=== PATIENT | male | born 1980 | race Caucasian/White ===

== ENCOUNTER 2022-07-30 11:23 | Emergency (ER) | payer MEDICAID, SELFPAY ==
[2022-07-30 11:25] VITALS: BP 176/100; PULSE 102; RESP 18; TEMP 36.4; O2SAT 99; BMI 19.2
[2022-07-30] MEDS: Dicyclomine 10 MG Capsule 20 MG PO (11:44)
[2022-07-30] MEDS: Ondansetron ODT 4 MG Tablet PO (11:44)
--- NOTE | 2022-07-30 11:45 | EDS_ITS ---
HPI History of Present Illness Chief Complaint: Nausea/Vomiting Detail of Chief Complaint: Viral-like symptoms, respiratory and GI Informant: patient Onset/Context/Timing Onset: Weeks (Onset was 2 weeks ago) Context: Sudden Onset Timing: Continuous and Waxes and wanes Quality: Upper respiratory infectious symptoms with nausea and cramping abdominal pa Location: Predominantly respiratory and GI Current Severity: Mild Maximum Severity: Moderate Worsened by: Smoking, exertion, drinking water Relieved by: Nothing Associated Symptoms Associated Symptoms: No documented fever. No exposure to anyone ill. Narrative Narrative: Patient is a 42-year-old male who is a smoker of 1 pack/day since he was a teenager. He states his symptoms started approximately 2 weeks ago. He does endorse rhinorrhea, congestion sore throat and cough. Cough is productive now of white to green-colored sputum. He denies blood. He denies history of VTE. He has no risk factors for VTE. He denies leg pain, swelling discoloration. He denies headache, photophobia, neck pain or neck stiffness. He denies auditory symptoms. He denies vomiting or diarrhea. He does endorse thirst, dry mouth. He denied orthostatic symptoms. He denied decreased urine output. He denies joint swelling. He denies rash. Prior similar symptoms: No Recent Illness/Hospitalization: No PFSH PFSH Medical History (Updated 07/30/22 @ 14:[address] Davis Erwin MD) Cough Medical History no medical history no medical history Home Medications doxycycline monohydrate 100 mg capsule 100 mg PO BID #14 CAPSULES 07/30/22 [Rx Last Taken Unknown] Allergy/AdvReac Type Severity Reaction Status Date / Time No Known Allergies Allergy Verified 07/30/22 11:24 Surgical History no surgical history no surgical history Social History (Updated 07/30/22 @ 11:[address] Davis Erwin MD) household members: significant other Smoking Status: Current every day smoker tobacco type: cigarettes substance use type: does not use ROS ROS ED Constitutional Constitutional ED: Denies chills, fever(s), subjective, sweats or weight loss Eyes Eyes: Denies blurry vision, change in vision or diplopia ENT ENT ED: Reports rhinorrhea and sore throat; Denies ear pain Cardiovascular Cardiovascular: Denies chest pain, orthopnea, palpitations, paroxysmal nocturnal dyspnea or racing heartbeat Respiratory/Chest Respiratory/Chest: Reports cough, dyspnea, dyspnea on exertion and sputum; Denies orthopnea or paroxysmal nocturnal dyspnea Gastrointestinal Gastrointestinal: Reports nausea; Denies abdominal pain, diarrhea, melena or vomiting Genitourinary Genitourinary ED: Denies dysuria, hematuria or urinary frequency Musculoskeletal Musculoskeletal: Denies arthralgias, back pain, myalgias or neck pain Integumentary Denies rash Neurologic Neurologic: Denies headache(s), paresthesias or weakness Hematologic/Lymphatic Hematologic/Lymphatic: Reports systems reviewed and no addt'l complaints, except as documented EXAM Physical Exam Const Vital Signs: 07/30/22 11:25 07/30/22 14:12 Temperature 97.6 F L Temperature Source Temporal Pulse Rate 102 H Respiratory Rate 18 Blood Pressure 176/100 H 150/94 H Blood Pressure Mean 125 112 Pulse Ox 99 Oxygen Delivery Method Room Air Positive well nourished and well developed General Appearance ED: well developed and NAD; Negative for cyanotic, diaphoretic or pallor HEENT Reports dry mucous membranes HEENT Narrative: Head is atraumatic normocephalic. Ears normal. Nares patent. There is slight drainage noted. Posterior pharynx out erythema or exudate. Uvula midline. There is no dysphonia. Mouth ED: Yes dry mucous membranes Mouth: dry mucous membranes Eyes PERRL and EOMs intact bilaterally General Eye ED: Negative for pale conjunctiva or scleral icterus Neck no lymphadenopathy, supple and no JVD Neck Narrative: Trachea is midline. There is no inspiratory expiratory stridor. Chest Wall inspection of chest normal and palpation of chest normal Resp normal respiratory effort and clear to auscultation bilaterally Cardio regular rhythm, S1 normal heart sound, S2 normal heart sound and no murmurs Rate: tachycardic GI normal to inspection, nondistended, normoactive bowel sounds, non-distended and no masses; Negative for non-tender or hepatosplenomegaly Auscultation: hypoactive bowel sounds Palpation: soft and tender other (Diffuse) Back/Spine no CVA tenderness Extremity normal to inspection Extremity Narrative: There is no asymmetry, swelling, discoloration, leg vein distention, palpable cords or tenderness along the distribution of the deep venous system. Neuro oriented x3, CN's II-XII intact bilaterally and no sensory deficits noted Sensorium / Orientation: alert Psych mental status grossly normal Skin no rashes or lesions noted, no wounds and skin turgor normal General Skin Exam: Negative for jaundice or pallor MDM MDM MDM Narrative Medical decision making narrative: With history of cough that is productive of colored sputum and smoking history will obtain chest x-ray to evaluate for purulent bronchitis versus pneumonia. Patient was treated with Zofran for his nausea and Bentyl for his cramping abdominal pain. Suspect this is a viral illness however with symptoms for now greater than 2 weeks and now having productive colored sputum will work-up for pneumonia. Vital signs are marked for an elevated blood pressure. Patient has not seen a doctor recently. He has no history of hypertension. Heart rate is also rapid and monitor reveals a sinus tachycardia. There are no prior records for review from the emergency department, general medicine or specialty services. Since patient has colored sputum is a smoker symptoms for greater than 2 weeks we will treat with antibiotics. There is no evidence of pneumonia on the chest x-ray. Since patient did not have a physician he was referred to Dr. Joe Odonnell for follow-up. He was informed that it is in his best interest to quit smoking. He was informed that he may be sick for several more days. Repeat blood pressure is 150/94. Since patient does not have history of hypertension has no end organ dysfunction. We will have him follow-up for repeat blood pressure in [address] Joe Odonnell. Radiography Chest X-Ray - ED: 2 View (2 view chest x-ray independent reviewed interpreted by me as negative for any acute process. There is evidence of hyperaeration consistent with COPD. Cardiac silhouette size normal. Perihilar region unremarkable. Osseous structures are unremarkable.) Diagnostic Testing: Clinical Impression(s) from Imaging Studies Chest X-Ray 07/30/22 12:07 IMPRESSION: Hyperinflation. Decreased bronchovascular markings suggestive of emphysematous changes. Electronically Signed: Davion Lee MD at 12:36 EST , Rhythm Strip Rhythm Strip: Sinus Tach Rate: 102 Ectopy: None Discharge Plan Triage Chief Complaint: Nausea/Vomiting ED Provider: Davis Erwin Dx/Rx/DC Orders Clinical Impression: Bronchitis, purulent, chronic, High blood pressure Instructions: Bronchitis Chronic Dc, ED Hypertension, To Be Confirmed Prescriptions: New doxycycline monohydrate 100 mg capsule 100 mg PO BID Qty: 14 0RF Primary Care Provider: Care Physician,No Primary Referrals: Joe Odonnell DO [Med Staff - Vp Director Of Creative Strategy] - 1-2 Weeks Care Physician,No Primary [Primary Care Provider] - Activity Restrictions/Additional Instructions: It is in your best interest to quit smoking. Because you smoke you may have a cough up to 4 weeks. Disposition Disposition: Home, Self Care
--- NOTE | 2022-07-30 12:07 | RAD_ITS ---
STUDY: X-RAY CHEST REASON FOR EXAM: Male, 42 years old. Productive cough and dyspnea TECHNIQUE: PA and lateral views of the chest. COMPARISON: None. FINDINGS: Hyperinflation. The lungs are clear. Decreased bilateral bronchovascular markings suggestive of emphysematous changes. There is no demonstrated pleural abnormality. Normal size heart. Normal mediastinum and trevor. Normal visualized pulmonary arteries. Normal visualized aortic arch and descending thoracic aorta. Normal visualized thoracic spine. Normal visualized ribs, clavicles, and shoulders. There is no demonstrated abnormality of the visualized soft tissue structures of the upper abdomen. RAD/Chest PA and Lateral IMPRESSION: Hyperinflation. Decreased bronchovascular markings suggestive of emphysematous changes. Electronically Signed: Davion Lee MD at 12:36 EST ,
[2022-07-30 14:12] VITALS: BP 150/94
[2022-07-30 14:37] VITALS: BP 134/78; PULSE 89; RESP 18; TEMP 36.9; O2SAT 96
--- NOTE | 2022-07-30 14:45 | CM.ED ---
Social Work Consult: No Primary Care Physicians Referral source: Self referral due to above. This psychologist social met with patient in room. Introduced self and psychologist social role. Patient agreeable to speak with this psychologist social. This psychologist social broached topic of no primary care physician for patient, patient confirms to not have a primary care physician (PCP). This psychologist social educated patient on value/importance of having a PCP, patient voiced understanding and agreeable to this psychologist social provided patient with list of in-network PCP's that are local to patient geographical region, list provided to patient. Patient denies any other community concerns and reports to have food, a place to stay and transportation. No further services requested or indicated. Elbert Delgado MSW, [facility]
== END 2022-07-30 14:45 | disposition home or self-care (01) ==
PROVIDERS: Emergency Provider Emergency Medicine; Visit Provider Emergency Medicine
DX: J40 Bronchitis, not specified as acute or chronic (principal); I10 Essential (primary) hypertension; R11.0 Nausea; R10.9 Unspecified abdominal pain; R09.3 Abnormal sputum; F17.210 Nicotine dependence, cigarettes, uncomplicated
CPT/HCPCS: 71046; 99283

== ENCOUNTER → 2023-01-21 | Outpatient (CLI) | payer MEDICAID, SELFPAY ==
[2023-01-21 15:26] LABS: Absolute Lymphocyte Count 2.44 X10^3/uL (0.83-4.51); Absolute Neutrophil Count 3.6 X10^3/uL (2.0-7.7); Basophil# 0.04 X10^3/uL; Basophil% 0.5 % (0-1); Eosinophil# 0.55 X10^3/uL; Eosinophils% 7.3 % (0-5); Hematocrit 48.4 % (40-54); Hemoglobin 15.9 g/dL (13.0-16.5); Lymphocyte # 2.44 X10^3/ul (0.83-4.51); Lymphocyte % 32.5 % (19-41); Mean Corp Hgb Conc 32.9 g/dL (32-36); Mean Corpuscular Hgb 32.4 pg (27.0-32.0); Mean Corpuscular Volume 98.8 fL (80-94); Mean Platelet Vol. 9.4 fl (6.2-12.0); Monocyte# 0.87 X10^3/uL; Monocyte% 11.6 % (0-10); NRBC Flagged by Analyzer 0 % (0-5); Neutrophil # 3.57 X10^3/uL (2.7-7.7); Neutrophil % 47.7 % (47-70); Platelet Count 311 K/mm3 (150-450); RBC Distribution Width CV 12.1 % (11.6-14.6); RBC Distribution Width SD 44.5 fl (35.1-43.9); White Blood Count 7.5 K/mm3 (4.4-11.0)
[2023-01-21 16:04] LABS: ALB/GLOB Ratio 0.8 RATIO (0.9-2.4); AST(SGOT) 24 U/L (15-37); Alanine Aminotransfer ALT/SGPT 24 U/L (16-61); Albumin, Serum 3.4 g/dL (3.2-5.0); Alkaline Phosphatase 95 U/L (45-117); Anion Gap 5 (5-15); BUN 15 mg/dL (7-18); BUN/Creat Ratio 18.1 RATIO (10-20); Calcium,Total 9.1 mg/dL (8.5-10.1); Chloride 108 mmol/L (98-107); Cholesterol 250 mg/dL (200); Creatinine, Serum 0.83 mg/dL (0.70-1.30); EST Glomerular Filtration Rate 108 mL/min (>60); Est Glom Filt Rate - Afr Amer 131 mL/min (>60); Globulin 4.4 g/dL (2.2-4.2); Glucose 101 mg/dL (74-106); High Density Lipoprotein 60 mg/dL; Potassium 3.9 mmol/L (3.5-5.1); Protein, Total 7.8 g/dL (6.4-8.2); Sodium Level 138 mmol/L (136-145); Triglycerides 176 mg/dL; Very Low Density Lipoprotein 35 mg/dL (5-40)
== END | disposition home or self-care (01) ==
LOC: MFPLAB 11:26
PROVIDERS: Visit Provider Family Medicine
DX: Z00.00 Encounter for general adult medical examination without abnormal findings (principal); Z13.220 Encounter for screening for lipoid disorders; Z13.1 Encounter for screening for diabetes mellitus
CPT/HCPCS: 36415; 80053; 80061; 85025